=== PATIENT | male | born 1975 | race Caucasian/White ===

== ENCOUNTER 2016-05-30 09:55 | Emergency (ER) | payer MEDICAID, OTHER ==
[2016-05-30 11:12] VITALS: BP 110/62
--- NOTE | 2016-05-30 12:30 | UC ---
Lower Extremity/Ankle HPI - HPI Summary HPI Summary: pt presents c/o left leg pain and swelling. Had aortic valve replacemtn on 05/07 and days later had pace maker placed. Pt was treated for gout as inpatient. Has been following strict dietary recommendations low salt, low cholesterol, low sugar, no c/o difficulty breathign, cough or sudden weight gain. Has at home nursing care. c/o let leg swelling and tenderness that has worsened over last 3 days, unable to bear weight due to pain. - History of Current Complaint Chief Complaint: UCLowerExtremity Stated Complaint: LEFT ANKLE/KNEE SWELLING Time Seen by Provider: 05/30/16 11:59 Hx Obtained From: Patient, Family/Coordinator Of Health Services - is with pt and is good historian Onset/Duration: Gradual Onset, Lasting Days Severity Initially: Mild Severity Currently: Moderate Aggravating Factor(s): Standing, Ambulation Alleviating Factor(s): Nothing Able to Bear Weight: No - Allergies/Home Medications Allergies/Adverse Reactions: Allergies Allergy/AdvReac Type Severity Reaction Status Date / Time No Known Allergies Allergy Verified 05/30/16 11:12 Home Medications: Home Medications Ascorbic Acid TAB* [Vitamin C TAB*] 500 mg PO DAILY 05/30/16 [History Confirmed 05/30/16] Aspirin EC Low Dose* [Ecotrin EC Low Dose*] 81 mg PO DAILY 05/30/16 [History Confirmed 05/30/16] Ferrous Gluconate TAB* [Fergon TAB*] 325 mg PO BID 05/30/16 [History Confirmed 05/30/16] Folic Acid TAB* [Folvite TAB*] 1 mg PO DAILY 05/30/16 [History Confirmed ] Losartan TAB* [Cozaar TAB*] 50 mg PO DAILY 05/30/16 [History Confirmed 05/30/16] Metoprolol Tartrate TAB* [Lopressor TAB*] 25 mg PO DAILY 05/30/16 [History Confirmed 05/30/16] amLODIPine TAB* [Norvasc TAB*] 10 mg PO DAILY 05/30/16 [History Confirmed ] glipiZIDE TAB* [Glucotrol TAB*] 5 mg PO DAILY 05/30/16 [History Confirmed ] hydrALAZINE TAB* [Apresoline TAB*] 25 mg PO BID 05/30/16 [History Confirmed 08/10] PMH/Surg Hx/FS Hx/Imm Hx Previously Healthy: No - see pmh Endocrine History Of: Reports: Diabetes Denies: Thyroid Disease, Hyperthyroidism, Hypothyroidism, Dyslipidemia Cardiovascular History Of: Reports: Cardiac Disorders - Aortic valve replacement , Heart block, pacemaker, Hypertension Denies: Pacemaker/ICD, Myocardial Infarction, Congestive Heart Failure, Atrial Fibrillation, Deep Vein Thrombosis, Bleeding Disorders Respiratory History Of: Denies: COPD, Asthma, Bronchitis, Pneumonia, Pulmonary Embolism GI/ History Of: Denies: Gastroesophageal Reflux, Ulcer, Gastrointestinal Bleed, Gall Bladder Disease, Kidney Stones, Diverticulitis, Renal Disease, Urosepsis Neurological History Of: Denies: TIA, CVA, Dementia, Seizures, Migraine Psychological History Of: Denies: Anxiety, Depression, Bipolar Disorder, Schizophrenia, Post Traumatic Stress Disorder Cancer History Of: Denies: Lung Cancer, Colorectal Cancer, Breast Cancer, Prostate Cancer, Cervical Cancer Other History Of: Negative For: HIV, Hepatitis B, Hepatitis C, Anticoagulant Therapy - Surgical History Surgical History: Yes Surgery Procedure, Year, and Place: Open heart for aortic valve replacement. Pacemaker - Family History Known Family History: Positive: Cardiac Disease - Social History Lives: With Family Alcohol Use: Rare Substance Use Type: None Smoking Status (MU): Never Smoked Tobacco Review of Systems Constitutional: Negative Skin: Other - healing chest scar Eyes: Negative ENT: Negative Respiratory: Negative Cardiovascular: Negative Gastrointestinal: Negative Genitourinary: Negative Motor: Decreased ROM - left leg Neurovascular: Negative Musculoskeletal: Arthralgia, Decreased ROM, Edema - left leg, Myalgia Neurological: Negative Psychological: Negative All Other Systems Reviewed And Are Negative: Yes Physical Exam Triage Information Reviewed: Yes Appearance: Ill-Appearing Vital Signs: Initial Vital Signs Temp 98.1 F 05/30/16 11:08 Pulse 62 05/30/16 11:08 Resp 16 05/30/16 11:08 BP 110/62 05/30/16 11:08 Pulse Ox 100 05/30/16 11:08 Vital Signs Reviewed: Yes ENT Exam: Normal Neck exam: Normal Respiratory Exam: Normal Cardiovascular: Positive: Murmur:Sys:Grade _?_/, Other: - palpable pace maker , sutures visible no signs of infection Musculoskeletal Exam: Other - generalized left leg leg tenderness with palpation , no erythema Neurological Exam: Normal Psychological Exam: Normal Skin Exam: Other - healing surgical scar sternum, healing incision left upper anterior chest, sutures in tact Lower Extremity Course/Dx - Differential Dx/Diagnosis Differential Diagnosis/HQI/PQRI: DVT, Gout Provider Diagnoses: DVT? - Physician Notifications Discussed Patient Care With: Danya Woods at [facility] Time Discussed With Above Provider: 12:30 - danya accpeted pt Instructed by Provider To: Transfer - to [facility] Discharge - Discharge Plan Condition: Stable Disposition: [facility] Patient Education Materials: Leg Edema (ED)
== END 2016-05-30 12:41 | disposition short-term general hospital (02) ==
LOC: UCCORT 09:55
DX: I82.402 Acute embolism and thrombosis of unspecified deep veins of left lower extremity (principal); I10 Essential (primary) hypertension; E11.9 Type 2 diabetes mellitus without complications; Z95.2 Presence of prosthetic heart valve; Z95.0 Presence of cardiac pacemaker; Z79.82 Long term (current) use of aspirin
CPT/HCPCS: 99213; G0463

== ENCOUNTER 2017-06-23 15:53 | Emergency (ER) | payer OTHER ==
[2017-06-23 16:27] VITALS: BP 131/70
[2017-06-23] MEDS ORDERED: Acetaminophen TAB* 325 MG PO ONE (18:19)
--- NOTE | 2017-06-23 18:23 | UC ---
Throat Pain/Nasal [place] HPI - HPI Summary HPI Summary: ONSET OF ST, SUBJECTIVE FEVER, PAIN WITH SWALLOWING, PAREDES AND COUGH LAST NIGHT. NO SOB OR CHEST PAIN. - History of Current Complaint Chief Complaint: UCGeneralIllness Stated Complaint: FLU SYMPTOMS Time Seen by Provider: 06/23/17 17:25 Hx Obtained From: Patient, Family/[employer] - Onset/Duration: Gradual Onset, Lasting Hours, Still Present Severity: Moderate Pain Intensity: 6 Pain Scale Used: 0-10 Numeric Cough: Nonproductive Associated Signs & Symptoms: Positive: Fever - Allergies/Home Medications Allergies/Adverse Reactions: Allergies Allergy/AdvReac Type Severity Reaction Status Date / Time No Known Allergies Allergy Verified 06/23/17 16:28 Home Medications: Home Medications Acetaminophen TAB* [Tylenol TAB*] 650 mg PO Q4H PRN 06/23/17 [History Confirmed 06/23/17] PMH/Surg Hx/FS Hx/Imm Hx Endocrine History: Diabetes Cardiovascular History: Cardiac Disease, Hypertension Other History Of: Negative For: HIV, Hepatitis B, Hepatitis C, Anticoagulant Therapy - Surgical History Surgical History: Yes Surgery Procedure, Year, and Place: Open heart for aortic valve replacement. Pacemaker - Family History Known Family History: Positive: Cardiac Disease, Hypertension - Social History Alcohol Use: Rare Substance Use Type: None Smoking Status (MU): Never Smoked Tobacco Review of Systems Constitutional: Fever, Chills, Fatigue ENT: Sore Throat Respiratory: Cough Cardiovascular: Negative Gastrointestinal: Negative Neurological: Headache All Other Systems Reviewed And Are Negative: Yes Physical Exam Triage Information Reviewed: Yes Appearance: No Pain Distress, Well-Nourished, Ill-Appearing - MILD Vital Signs: Initial Vital Signs Temp 101.3 F 06/23/17 16:24 Pulse 60 06/23/17 16:24 Resp 16 06/23/17 16:24 BP 131/70 06/23/17 16:24 Pulse Ox 96 06/23/17 16:24 Vital Signs Reviewed: Yes Eyes: Positive: Conjunctiva Clear ENT: Positive: Hearing grossly normal, Pharynx normal, TMs normal, Hoarse voice Neck: Positive: Supple, Tenderness @ - MILD SPFL CERVICAL LAD, Enlarged Nodes @ - MILD SPFL CERVICAL LAD Respiratory Exam: Normal Cardiovascular Exam: Normal Abdomen Description: Positive: Soft Musculoskeletal: Positive: No Edema Neurological: Positive: Alert Psychological: Positive: Normal Response To Family, Age Appropriate Behavior Skin: Negative: rashes Diagnostics - Laboratory Diagnostic Studies Completed/Ordered: FLU A POSITIVE. STREP NEG Throat Pain/Nasal Course/Dx - Differential Dx/Diagnosis Provider Diagnoses: INFLUENZA A Discharge - Discharge Plan Condition: Stable Disposition: HOME Prescriptions: Oseltamivir CAP* [Tamiflu CAP*] 75 mg PO BID #10 cap Patient Education Materials: Influenza (ED) Forms: *Work Release Referrals: Chante Adrian MD [Primary Care Provider] - If Needed Additional Instructions: SWAB POSITIVE FOR INFLUENZA A. TAMIFLU TWICE DAILY FOR 5 DAYS. OTC MEDS NEEDED FOR FEVER, BODY ACHES. STAY WELL HYDRATED AND RESTED. SEEK FOLLOW-UP IF YOU ARE NOT IMPROVING EXPECTED.
== END 2017-06-23 19:06 | disposition home or self-care (01) ==
LOC: UCCORT 15:53
DX: J10.1 Influenza due to other identified influenza virus with other respiratory manifestations (principal); Z95.2 Presence of prosthetic heart valve; I10 Essential (primary) hypertension; Z95.0 Presence of cardiac pacemaker
CPT/HCPCS: 87502; 87651; 99212; A9270-GY; G0463